=== PATIENT | male | born 1980 | race Caucasian/White ===

== ENCOUNTER 2018-07-31 14:13 | Emergency (ER) | payer BC ==
[~2018-07-31] VITALS: Ht 182.8 cm; Wt 74.8 kg
[~2018-07-31 14:13] MED LIST: CLARITIN10 MG PO; MEDROL DOSEPAK4 MG PO; Motrin,Rufen800 MG PO; PREDNISONE; PROVENTIL0.09 MG/A1 INH; PROVENTIL0.09 MG/AC IH; ROBAXIN750 MG PO; VICODIN 5/500 505 MG PO; ZITHROMAX Z PA250 MG PO; ZITHROMAX250 MG PO
== END 2018-07-31 16:16 | disposition home or self-care (01) ==
LOC: ED 14:13
DX: S20.212A Contusion of left front wall of thorax, initial encounter (principal); F17.210 Nicotine dependence, cigarettes, uncomplicated; Z88.8 Allergy status to other drugs, medicaments and biological substances; W19.XXXA Unspecified fall, initial encounter; Y93.89 Activity, other specified; Y92.89 Other specified places as the place of occurrence of the external cause; Y99.9 Unspecified external cause status